=== PATIENT | male | born 1995 | race Caucasian/White ===

== ENCOUNTER → 2020-07-12 | Outpatient (CLI) | payer OTHER ==
[~2020-07-12] MED LIST: ISOVUE-300 61% 50ML VIAL As Ordered ONE; LIDOCAINE 1% MDV 20ML VIAL As Ordered ONE; TRIAMCINOLONE ACETONIDE SUSP 40 MG/ML VIAL (J3301) As Ordered ONE
--- NOTE | 2020-07-12 14:17 | REP ---
INDICATION: RIGHT HIP PAIN. COMPARISON: None TECHNIQUE: The procedure was performed by CHANDAN Mon, under the direct supervision of Dr. Prakash. The benefits and risks of the procedure were explained to the patient, and an informed consent was obtained. Directly prior to the start of the procedure, a formal time-out was completed in the procedure room. The right femoral neck joint space was localized using fluoroscopic guidance. The skin was prepped and draped in a sterile fashion. Approximately 5 mL of 1% Lidocaine 10 mg/ml was used as a local anesthetic. Using fluoroscopic guidance, a #22 gauge spinal needle was inserted and advanced into the right femoral neck joint space. Approximately 1 mL of Isovue 300 was injected to verify placement. Ten mL of a solution containing 9 mL 1% lidocaine 10 mg/ml and 1 mL Kenalog 40 milligrams/milliliter was injected into the joint space. The needle was removed and hemostasis was achieved. 0.1 minutes of fluoroscopy time was utilized for this procedure. Some fluoroscopic images are performed with last image hold technology. These images require no additional radiation. FINDINGS: The patient tolerated the procedure well and there were no immediate complications. IMPRESSION: 1. Intra-articular right femoral neck injection under fluoroscopic guidance.. <Electronically signed by Naye Camilo > 07/12/20 1340 <Electronically signed by Sreekanth Prakash > 07/12/20 1844
== END ==
LOC: M RADPRO 10:00
PROVIDERS: ATTEND Orthopaedic Surgery
DX: M24.851 Other specific joint derangements of right hip, not elsewhere classified (principal)
CPT/HCPCS: 20610; 77002; J3301; Q9967